=== PATIENT | male | born 1955 | race Caucasian/White ===

== ENCOUNTER 2023-02-03 15:16 | Emergency (ER) | payer OTHER, MEDICAID ==
[~2023-02-03] VITALS: Ht 167.6 cm; Wt 90.7 kg
[2023-02-03 15:27] VITALS: BP_SYST 139; PULSE 85; RESP 18; TEMP 98.3; O2SAT 98
[2023-02-03] MEDS ORDERED: KETOROLAC TROMETHAMINE 60 MG/2 ML VIAL IM ONE (15:45)
[2023-02-03] MEDS ORDERED: MORPHINE 4 MG INJ. 4 MG/ML VIAL IM ONE (15:45)
[2023-02-03] MEDS ORDERED: SOM350 PO (17:57)
[2023-02-03] MEDS ORDERED: HYDR-3921 PO (17:57)
[2023-02-03] MEDS ORDERED: IBUP-1971 PO (17:57)
[2023-02-03 18:07] VITALS: BP_SYST 139; PULSE 85; RESP 18; TEMP 98.3; O2SAT 98
== END 2023-02-03 18:02 | disposition home or self-care (01) ==
LOC: SED 15:16
DX: S39.012A Strain of muscle, fascia and tendon of lower back, initial encounter (principal); I10 Essential (primary) hypertension; E78.00 Pure hypercholesterolemia, unspecified; Z88.0 Allergy status to penicillin; Z79.899 Other long term (current) drug therapy; W11.XXXA Fall on and from ladder, initial encounter; Y93.89 Activity, other specified; Y92.89 Other specified places as the place of occurrence of the external cause; Y99.8 Other external cause status
CPT/HCPCS: 99284; 72072; 72100; 96372; J1885; J2270